=== PATIENT | female | born 1990 | race Caucasian/White ===

== ENCOUNTER 2024-01-03 10:23 | Emergency (ER) | payer OTHER, SELFPAY ==
[2024-01-03 10:31] VITALS: BP 152/91
--- NOTE | 2024-01-03 10:52 | ED.GENMED ---
History of Present Illness
<Kaylyn Cortez PA-C - Last Filed: 01/03/24 13:21>
General
Chief Complaint: Swallowing Problem
Source: patient
Exam Limitations: none
Time Seen by Provider: 01/03/24 10:51
Nursing documentation reviewed up to this point in time: agreed with
History of Present Illness
History of Present Illness:
33-year-old female with no pertinent past medical history presents emergency department with concerns of pain with swallowing that started 5 days ago. Patient reports that she does not recall what she was eating when she first noticed it but
reports that when she had something to eat Tuesday, she had a brief episode of chest pain and felt like the food was getting stuck at the area of the lower chest. Patient reports that she will get this sensation with water as well but does feel that
eventually the food passes. Patient denies any regurgitation of food, denies any vomiting. Patient denies any abdominal pain, constipation, diarrhea, coughing, hx of GERD. Patient has tried pepcid without relief. Patient has never had this problem
before. Patient states that she just started Zoloft a few weeks ago but denies any other new medications. Patient denies any chronic medical conditions. Patient states that she is currently pain free. She denies any family history of cardiac disease.
Review of Systems
<Kaylyn Cortez PA-C - Last Filed: 01/03/24 13:21>
Review of Systems
All Other Systems: ROS reviewed and negative except as documented in HPI and ROS
Phy Exam
<Kaylyn Cortez PA-C - Last Filed: 01/03/24 13:21>
Physical Exam
Physical Exam:
General: Patient is well appearing and in no acute distress; non-toxic
Skin: Warm and dry, no rashes or lesions
Head: Normocephalic, atraumatic
Eyes: Sclera non-icteric. EOMs intact.
Cardiac: Regular rate and rhythm, no murmurs, no tenderness to palpation of the external chest wall
Pulm: Normal respiratory effort
Abdomen: No abdominal tenderness to palpation, no palpable masses
Neuro: CN II-XII intact, no focal neurologic deficits.
Psychiatric: Appropriate mood and affect.
Course
<Kaylyn Cortez PA-C - Last Filed: 01/03/24 13:21>
Orders/Labs/Results
Orders:
Orders
01/03/24 10:25
Electrocardiogram (*1) Urgent
Reason for Study: Chest Pain
EKG- Treatment ONCE
01/03/24 11:20
Pantoprazole [Protonix] 40 mg PO NOW STA
01/03/24 11:33
Complete Blood Count/With Diff Urgent
Comprehensive Metabolic Panel Urgent
01/03/24 11:39
Pantoprazole [Protonix IV] 40 mg IV NOW STA
01/03/24 12:05
Esoph [RF Esophagus-Single Contrast] Urgent
Comment: please use barium tablets
Reason For Exam: dypshagia
Abnormal Lab Results
01/03/24
11:33
RBC 3.98 L 10^6/uL
(4.20-5.40)
Hct 36.4 L %
(37.0-47.0)
MCH 31.4 H pg
(27.0-31.0)
Absolute Lymphs (auto) 1.0 L 10^3/uL
(1.2-3.4)
Neutrophils % 81.4 H %
(42.2-75.2)
Lymphocytes % 13.4 L %
(20.5-51.1)
Glucose 149 H mg/dl
(70-99)
01/03/24 11:33
01/03/24 11:33
Vital Signs
Initial and Last Documented VS:
Initial Vital Signs
Temp Pulse Resp BP Pulse Ox
98.2 F 66 18 152/91 100
01/03/24 10:31 01/03/24 10:31 01/03/24 10:31 01/03/24 10:31 01/03/24 10:31
Last Documented Vital Signs
Temp Pulse Resp BP Pulse Ox
98.2 F 66 18 115/73 98
01/03/24 10:31 01/03/24 10:31 01/03/24 10:31 01/03/24 12:00 01/03/24 12:00
<Esdras Hardy, DO - Last Filed: 01/03/24 13:02>
Orders/Labs/Results
Orders:
Orders
01/03/24 10:25
Electrocardiogram (*1) Urgent
Reason for Study: Chest Pain
EKG- Treatment ONCE
01/03/24 11:20
Pantoprazole [Protonix] 40 mg PO NOW STA
01/03/24 11:33
Complete Blood Count/With Diff Urgent
Comprehensive Metabolic Panel Urgent
01/03/24 11:39
Pantoprazole [Protonix IV] 40 mg IV NOW STA
01/03/24 12:05
Esoph [RF Esophagus-Single Contrast] Urgent
Comment: please use barium tablets
Reason For Exam: dypshagia
Abnormal Lab Results
01/03/24
11:33
RBC 3.98 L 10^6/uL
(4.20-5.40)
Hct 36.4 L %
(37.0-47.0)
MCH 31.4 H pg
(27.0-31.0)
Absolute Lymphs (auto) 1.0 L 10^3/uL
(1.2-3.4)
Neutrophils % 81.4 H %
(42.2-75.2)
Lymphocytes % 13.4 L %
(20.5-51.1)
Glucose 149 H mg/dl
(70-99)
01/03/24 11:33
01/03/24 11:33
Vital Signs
Initial and Last Documented VS:
Initial Vital Signs
Temp Pulse Resp BP Pulse Ox
98.2 F 66 18 152/91 100
01/03/24 10:31 01/03/24 10:31 01/03/24 10:31 01/03/24 10:31 01/03/24 10:31
Last Documented Vital Signs
Temp Pulse Resp BP Pulse Ox
98.2 F 66 18 115/73 98
01/03/24 10:31 01/03/24 10:31 01/03/24 10:31 01/03/24 12:00 01/03/24 12:00
<Kaylyn Cortez PA-C - Last Filed: 01/03/24 13:21>
MDM/Problems Addressed
Differential Diagnosis Includes:
ddx include GERD, esophageal web, esophageal structure, achalasia,
MDM/Problems Addressed:
33-year-old female presents emergency department today with concerns of food and water getting stuck with swallowing. She is able to tolerate PO. She has transient chest pain after swallowing. On exam, she is well appearing, in no acute distress,
she has no abdominal or chest wall tenderness. CBC and CMP unremarkable. GI recommends esophagram study. Esophagram study negative for any evidence of stricture, web, neoplasm, diverticulum, ulceration or inflammatory change. Suspect possible
symptomatic GERD, will start 2-week PPI trial. Stressed GI follow-up or follow-up with PCP. Patient stable for discharge. Patient asymptomatic at this time.
Chronic conditions affecting care:
n/a
Acute Exacerbation and/or Progression of Chronic Illness:
n/a
<Kaylyn Cortez PA-C - Last Filed: 01/03/24 13:21>
*Pulse Oximetry
Patient hypoxic: no
*Critical Care Note
Total Time (30-74mins, 75-104mins- exclusive of procedures): Not Applicable
Data Reviewed
Review of Other/Old Records Reveals: Records (no previous ER physician documentation to review ) and Discharge Summary (no discharge summaries in [facility] to review )
Source: patient and records
Prescriptions/Medications Considered But Not Given:
n/a
Further Testing Considered But Not Given:
Patient will need outpatient scope, no further testing indicated at this time
<Kaylyn Cortez PA-C - Last Filed: 01/03/24 13:21>
Patient Management
Escalation/DeEscalation of care consider admission/obs:
Admit not indicated, case reviewed with my attending
ED Attending Note
<Kaylyn Cortez PA-C - Last Filed: 01/03/24 13:21>
-
Portions of this chart may have been created with voice recognition software.� Occasional wrong word or��sound alike� substitutions may have occurred due to the inherent limitations of voice recognition software.
<Esdras Hardy, - Last Filed: 01/03/24 13:02>
ED Attending Note
Patient seen and examined by attending physician: Yes
I performed a history and physical exam of patient and discussed management with resident, I reviewed resident's note and agree with documented findings and plan of care.: Yes
ED Attending Note:
I have reviewed and agree history and treatment plan by Kaylyn Cortez. My exam revealed 33-year-old female with no acute distress. Ambulates without difficulty. Tolerated barium swallow well. Normal swallow study. Suspect possible GERD cause.
Do not suspect ACS. Stable for discharge. Protonix and GI follow-up
Discharge Plan
Departure
Patient Disposition: Home (Routine Discharge)
Date of Disposition: 01/03/24
Time of Disposition: 12:53
Patient with high blood pressure during this ER visit?: Yes
Condition: Good
Discharge Problem:
Dysphagia
Instructions: Dysphagia, Chest Pain (DC), BLOOD PRESSURE
Prescriptions:
New
pantoprazole 20 mg tablet,delayed release (DR/EC)
20 mg PO DAILY Qty: 30 0RF
Referrals:
Jorge Caban MD [Active] - Call in 1-3 days for appt
NONE,* [Family Provider] -
Activity Restrictions/Additional Instructions:
Pantoprazole has been sent to your pharmacy. Please take 1 tablet once daily for 2 weeks and continue to monitor your symptoms.
Please call the attached number to schedule appointment to see a cottage supervisor.
Please return to emergency department should you not be able to tolerate oral intake, have persistent chest pain, shortness of breath, dizziness, lightheadedness, blood in your stools, vomiting of blood, or any other signs or symptoms concerning to
you
Interventions
Interventions:
*Risk Screen - Suicide Last Done: 01/03/24 10:31
*General Assessment Last Done: 01/03/24 11:29
*Neglect/Abuse Screening Last Done: 01/03/24 10:31
ED- Fall Risk Assessment Last Done: 01/03/24 11:29
*ED COVID-19 Vaccine History Last Done: 01/03/24 10:31
*Nursing Disposition Last Done: 01/03/24 13:01
ED-EENT Assessment Last Done: 01/03/24 11:29
BK-Fiaktn-Byjgmqgvts Assessment Last Done: 01/03/24 11:29
ED- Pulmonary Assessment Last Done: 01/03/24 11:29
ED- Neurological Assessment Last Done: 01/03/24 11:29
ED- Cardiac Assessment Last Done: 01/03/24 11:29
ED Swallowing Screen Last Done: 01/03/24 11:31
Discharge Date and Time
Discharge Date/Time: 01/03/24 13:17
Print Language: CHADIAN
[2024-01-03 11:28] VITALS: BMI 26.5
[2024-01-03 11:33] VITALS: BP 120/76
[2024-01-03] MEDS: PROTONIX IV 40 MG IV (11:42)
[2024-01-03 11:45] LABS: % Basophils 0.7 % (0-2); % Eosinophils 0.3 % (0-6); % Immature Granulocytes 0.1 % (0-0.5); % Lymphocytes 13.4 % (20.5-51.1); % Monocytes 4.1 % (1.7-9.3); % Neutrophils 81.4 % (42.2-75.2); Absolute Basophils 0.1 10^3/uL (0-0.2); Absolute Monocytes 0.3 10^3/uL (0.1-0.6); Absolute Neutrophils 6.2 10^3/uL (1.4-6.5); Hematocrit 36.4 % (37.0-47.0); Hemoglobin 12.5 g/dL (12.0-16.0); Mean Corp Hgb Conc. 34.3 g/dL (33.0-37.0); Mean Corpuscular Hgb 31.4 pg (27.0-31.0); Mean Corpuscular Volume 91.5 fL (81.0-99.0); Mean Platelet Volume 8.6 fL (7.4-10.4); Nucleated Red Blood Cells % 0 %; Platelet Count 286 10^3/uL (130-400); Red Blood Cell Count 3.98 10^6/uL (4.20-5.40); Red Cell Dist. Width 12.6 % (11.5-14.5); White Blood Cell Count 7.6 10^3/uL (4.8-10.8)
[2024-01-03 11:58] LABS: ALT (SGPT) 26 U/L (0-35); AST (SGOT) 31 U/L (14-36); Albumin 4.4 g/dl (3.5-5.0); Alkaline Phosphatase 65 U/L (38-126); Blood Urea Nitrogen 12 mg/dl (7-17); Calcium 9.5 mg/dl (8.4-10.2); Carbon Dioxide 27 mmol/L (22-30); Chloride 101 mmol/L (98-107); Estimated Creatinine Clearance 113 ml/min; Glucose 149 mg/dl (70-99); Sodium 141 mmol/L (135-145); Total Bilirubin 0.3 mg/dl (0.2-1.3); Total Protein 7.5 g/dl (6.3-8.2); eGFR > 60.00
[2024-01-03 12:00] VITALS: BP 115/73
== END 2024-01-03 13:17 | disposition home or self-care (01) ==
LOC: EMR 10:23
PROVIDERS: Physician Assistant; EMERGENCY PHYSICIAN Emergency Medicine
DX: R13.10 Dysphagia, unspecified (principal); R03.0 Elevated blood-pressure reading, without diagnosis of hypertension; K21.9 Gastro-esophageal reflux disease without esophagitis
CPT/HCPCS: 99285; 96374; 74220; 80053; 85025; 93005

== ENCOUNTER → 2025-03-04 13:19 | Outpatient (REF) | payer OTHER, SELFPAY | LOC: PNTC 13:19 | PROVIDERS: ATTENDING PHYSICIAN Obstetrics & Gynecology | DX: O41.03X0 Oligohydramnios, third trimester, not applicable or unspecified (principal); Z87.59 Personal history of other complications of pregnancy, childbirth and the puerperium | CPT/HCPCS: 76815 ==